=== PATIENT | male | born 1965 | race Asian ===

== ENCOUNTER 2016-11-09 05:12 | Inpatient (IN) | payer OTHER ==
[2016-11-09] VITALS (14 sets, daily range): BP systolic 103–127; BP diastolic 61–84
[~2016-11-09] VITALS: Ht 172.7 cm; Wt 81.6 kg
[2016-11-09] MEDS ORDERED: GABAPENTIN300 MG ORAL (05:59)
[2016-11-09] MEDS ORDERED: Vancomycin 1gm/D5W 275ml IVPB ONE ×2 (06:00)
[2016-11-09] MEDS ORDERED: Pantoprazole Inj IVP ONE (06:00)
[2016-11-09] MEDS ORDERED: CYCLOBENZAPRINE10 MG ORAL (06:00)
[2016-11-09] MEDS ORDERED: Vancomycin 1gm inj IVPB ONE (06:14)
[2016-11-09] MEDS ORDERED: Thrombin 5000 units TOPIC ONE (06:23)
[2016-11-09] MEDS ORDERED: Heparin 5000 units/ml inj ONE (06:24)
[2016-11-09] MEDS ORDERED: Bacitracin 50000 Units Vial ONE (06:25)
[2016-11-09] MEDS ORDERED: Bupivacaine w/Epi 0.5% 30ml Vial INJ ONE (06:25)
[2016-11-09] MEDS ORDERED: Lacri-Lube Opth Oint 3.5gm ONE (06:25)
[2016-11-09] MEDS ORDERED: Thrombin 5000 units spray kit TOPIC ONE ×2 (06:25→09:40)
[2016-11-09] MEDS ORDERED: Gelfoam Absorbable 1gm powder pkt TOPIC ONE ×2 (06:25→09:40)
[2016-11-09] MEDS ORDERED: LR 1000ml 1,000 ML IVLG SCH (06:57)
--- NOTE | 2016-11-09 06:57 | Anethesia Preoperative Eval ---
Anesthesia Pre-op PMH/ROS General Date of Evaluation: Nov 09, 2016 Time of Evaluation: 07:21 Anesthesiologist: Esdras ASA Score: ASA 2 Mallampati Score Class I : Soft palate, uvula, fauces, pillars visible Class II: Soft palate, uvula, fauces visible Class III: Soft palate, base of uvula visible Class IV: Only hard plate visible Mallampati Classification: Class II Surgeon: Chel Diagnosis: Back Pain Surgical Procedure: PSF L4-5, Pedicle Screws Anesthesia History: none Family History: no anesthesia problems Allergies: Coded Allergies: No Known Allergies (Unverified , 11/07/16) Medications: see eMAR Past Medical History Cardiovascular: Reports: HTN PSxH Narrative: Microdiscectomy L4-5 Anesthesia Pre-op Phys. Exam Physician Exam Last Vital Signs Date Time Temp Pulse Resp B/P Pulse Ox O2 Delivery O2 Flow Rate FiO2 11/09/16 06:00 97.8 78 18 127/80 100 Room Air Constitutional: NAD Neurologic: CN 2-12 intact Cardiovascular: RRR Respiratory: CTA Gastrointestinal: S/NT/ND Airway Exam Mallampati Score: Class II MO: limited ROM: limited Teeth: intact Anesthesia Pre-op A/P Risk Assessment & Plan Assessment: ASA 2 Plan: GA, BIS, Glidescope Pre-Antibiotics Dru Gram Vancomycin IV Given Within 1 Hr of Incision: Yes Time Given: 07:41 Jarvis Dewitt MD Nov 09, 2016 06:57
--- NOTE | 2016-11-09 06:59 | Immediate Post-Op Evaluation ---
Immediate Post-Op Evalulation Immediate Post-Op Evalulation Procedure: PSF L4-5, Pedicle Screws Date of Evaluation: Nov 09, 2016 Time of Evaluation: 12:04 IV Fluids: 900 LR Blood Products: 0 Estimated Blood Loss: 75 Urinary Output: 300 Blood Pressure Systolic: 123 Blood Pressure Diastolic: 73 Pulse Rate: 83 Respiratory Rate: 16 O2 Sat by Pulse Oximetry: 100 Temperature (Fahrenheit): 97 Pain Score (1-10): 2 Nausea: No Vomiting: No Complications 0 Patient Status: awake, reacts, patent, extubated, none Hydration Status: adequate Dru Gram Vancomycin IV Given Within 1 Hr of Incision: Yes Time Given: 07:41 Jarvis Dewitt MD Nov 09, 2016 06:59
[2016-11-09] MEDS ORDERED: Hydromorphone 0.5mg/0.5ml inj IVP PRN (07:00)
[2016-11-09] MEDS ORDERED: fentaNYL 100 mcg/2 mL IV PRN (07:00)
[2016-11-09] MEDS ORDERED: DiphenhydrAMINE 50mg/ml Inj IVP PRN ×2 (07:00→12:00)
[2016-11-09] MEDS ORDERED: Norco 7.5mg/325mg tab ORAL PRN (07:00)
[2016-11-09] MEDS ORDERED: LORazepam Inj 2mg/ml 1ml IV PRN (07:00)
[2016-11-09] MEDS ORDERED: Oxycodone/Acetaminophen 5-325 ORAL PRN (07:00)
[2016-11-09] MEDS ORDERED: Norco 5mg/325mg tab ORAL PRN (07:00)
[2016-11-09] MEDS ORDERED: Meperidine 25mg/ml Inj IV PRN (07:00)
[2016-11-09] MEDS ORDERED: Metoclopramide 10mg/2ml Inj IVP PRN (07:00)
[2016-11-09] MEDS ORDERED: Atropine Inj 1mg/10ml Syr IV PRN (07:00)
[2016-11-09] MEDS ORDERED: Labetalol 5mg/ml 20ml vial IV PRN (07:00)
[2016-11-09] MEDS ORDERED: Ketorolac 60mg Inj IV PRN (07:00)
[2016-11-09] MEDS ORDERED: Midazolam 2mg/2ml Inj IVP PRN (07:00)
[2016-11-09] MEDS ORDERED: Ketorolac 30mg Inj IV PRN (07:00)
[2016-11-09] MEDS ORDERED: Acetaminophen (Non formulary) 1,000 MG/100 ML ML IV SCH (07:15)
[2016-11-09] MEDS ORDERED: Zemuron 50mg/5ml Inj IV ONE (07:30)
[2016-11-09] MEDS ORDERED: Neostigmine 1mg/ml 10ml Inj ONE (07:30)
[2016-11-09] MEDS ORDERED: Glycopyrrolate 0.2mg/ml 1ml Vial ONE (07:30)
[2016-11-09] MEDS ORDERED: NS Irrig 1000ml ONE (07:30)
[2016-11-09] MEDS ORDERED: Sterile Water Irrig 1000ml IRRIG ONE (07:30)
[2016-11-09] MEDS ORDERED: Dexamethasone 4mg/ml vial ONE (07:30)
[2016-11-09] MEDS ORDERED: Midazolam 2mg/2ml Inj ONE (07:30)
[2016-11-09] MEDS ORDERED: Lidocaine 1% Plain 30 ml INJ ONE (07:30)
[2016-11-09] MEDS ORDERED: fentaNYL 250mcg/5ml ONE (07:30)
[2016-11-09] MEDS ORDERED: Propofol 10mg/ml 20ml IV ONE (07:30)
[2016-11-09] MEDS ORDERED: LR 1000ml ONE (07:30)
--- NOTE | 2016-11-09 11:59 | Pre-Procedure Note/Attestation ---
Pre-Procedure Note/Attestation Complete Prior to Procedure Planned Procedure: bilateral Procedure Narrative: Posterior lumbar decompressive surgery Right L4-5, Interbody fusion with PEEK cage, pedicle screw fixation L4 and L5 levels bilaterally, arthrodesis using autograft and allograft and iliac crest bone marrow aspiration. Attestation I attest that I discussed the nature of the procedure; its benefits; risks and complications; and alternatives (and the risks and benefits of such alternatives ), prior to the procedure, with the patient (or the patient's legal abrasives sales representative). I attest that, if there was a reasonable possibility of needing a blood transfusion, the patient (or the patient's legal abrasives sales representative) was given the [place] Department of [employer] Services standardized written summary, pursuant to the Gabriel [place]ast[place] Blood Safety Act ([place] Health and Safety Code # 1645, as amended). I attest that I re-evaluated the patient just prior to the surgery and that there has been no change in the patient's H&P, except as documented below: DONTA MORENO Nov 09, 2016 11:59
[2016-11-09] MEDS ORDERED: Naloxone 0.4mg/ml Inj IVP PRN (12:00)
[2016-11-09] MEDS ORDERED: LORazepam 1mg tab ORAL PRN (12:00)
[2016-11-09] MEDS ORDERED: PCA HYDROmorphone 1mg/ml 30 ML IV PRN (12:00)
[2016-11-09] MEDS ORDERED: Rate Change PCA 1 Each MISC PRN (12:00)
--- NOTE | 2016-11-09 12:09 | Brief Operative Note ---
Immediate Post Operative Note Operative Note Chief Complaint: low back pain and right lower extremity radiculopathy Pre-op Diagnosis: Herniated disc and intervertebral body disc height loss L4-5 retrolisthesis of L4 on L5 Lack of improvement from conservative care, medicare therapy and prior lumbar microdiscectomy Procedure: 1. Redo lumbar decompressive hemilaminectomy R l4 2. Facetectomy R inferior L4 facet. 3. Transforaminal approach Right L4-5 from removal of far lateral disc herniation 4. Interbody PEEK cage insertion under fluoroscopy at L4-5, with allograft, autograft bone and iliac crest bone marrow aspirate. 5. Transpedicular fixation L4 and L5 Bilaterally, 40 x 5.0 and 45 x 6.0 screws, Medacta 6. 9 mm spinal element PEEK cage 7. Posterolateral approach, intermuscular and arthrodesis bilaterally L4-5 9. Intra-op supervision, use ad interpretation of Fluoroscopy for localization of spine using instruments. 10. Right iliac crest bone marrow aspiration 11. application of epidural fact graft at L45 12. Intrao-operative monitoring and pedicle screw stimulation L4 and L5 bilaterally 13. Edpidural drain placement 14. Plastic surgical closure of 6 -cm lumbar wound Post-op Diagnosis: same as pre-op Findings: consistent w/pre-op dx studies Surgeon: Trayn Milligan MD Aircraft Engine Mechanic Overhaul: Juanpablo Victoria MD Anesthesiologist: Dr August Anesthesia: general Specimen: yes - Disc Complications: none Condition: stable Fluids: 900 cc crystalloids Estimated Blood Loss: minimal Drains: hemovac Implant(s) used?: Yes - Medacta pedicle screws, [place] allograft and PEEK cage spinal elements TARYN MILLIGAN Nov 09, 2016 12:09
--- NOTE | 2016-11-09 12:29 | General Progress Note ---
Progress Note Progress Note Neurosurgery Postop S/ Comfortable. Incisional pain minimal. O/ Af Vsnl Alert oriented Face symetric Moves all extremities well sensation symmetrical doing well Admit DITTO MACHINE OPERATOR Pt's family updated DONTA MORENO Nov 09, 2016 12:29
--- NOTE | 2016-11-09 14:57 | Diagnostic Imaging Report ---
Indication: Back pain, intraoperative during lumbar fusion, symptoms and back and right lower extremity Technique: Digital intraoperative images Comparison: Findings: Intraoperative images demonstrate surgical tool to what is presumably the L5 vertebral body. Subsequent images document posterior fusion of L4 and L5 with posterior fusion hardware, and placement of a disc spacer. Impression: Intraoperative imaging, as described
[2016-11-09] MEDS: PCA shift volume MISC SCH ×2 (15:10→23:11)
[2016-11-09] MEDS ORDERED: Milk of Magnesia 30ml Ud ORAL PRN (15:30)
[2016-11-09] MEDS ORDERED: Cyclobenzaprine 10mg Tab ORAL PRN (15:30)
[2016-11-09] MEDS: Docusate 100mg cap ORAL SCH (17:47)
[2016-11-09] MEDS: Vancomycin 1 GM in D5W 275 ML IVPB SCH (17:47)
[2016-11-09] MEDS: Pericolace tab ORAL SCH (17:47)
--- NOTE | 2016-11-09 17:48 | Operative Note - Dictated ---
DATE OF OPERATION: 11/09/2016 PREOPERATIVE DIAGNOSES: 1. Recurrent right lower extremity radiculopathy. 2. Status post right L4-5 microdiskectomy, now with intraforaminal far lateral disk herniation. 3. Medically refractory intractable back pain and radiculopathy. 4. Status post injury to the lumbar spine in July 2014. POSTOPERATIVE DIAGNOSES: 1. Recurrent right lower extremity radiculopathy. 2. Status post right L4-5 microdiskectomy, now with intraforaminal far lateral disk herniation. 3. Medically refractory intractable back pain and radiculopathy. 4. Status post injury to the lumbar spine in July 2014. PROCEDURES: 1. Redo right L4 hemilaminectomy, medial facetectomy, and foraminotomy with decompression of the central canal and lateral recess. 2. Complete facet osteotomy of the inferior facet of right L4. 3. Radical diskectomy and preparation of disk space, L4-5 level. 4. Transforaminal approach to the right L4-5 level and resection of a far lateral intraforaminal disk herniation. 5. Preparation of disk space at L4-5 level and complete diskectomy. 6. Insertion of biomechanical device, PEEK cage 9 mm with allograft, autograft, and iliac crest bone marrow aspirate under fluoroscopic guidance insertion. 7. Transpedicular fixation at L4 and L5 levels bilaterally with pedicle screws of 40 x 5 mm and 45 x 6 mm screws, Madacta System. 8. Posterolateral arthrodesis using autologous bone graft, allograft, and iliac crest bone marrow aspiration, L4-5 level bilaterally. 9. Intraoperative supervision use and interpretation of fluoroscopy for localization of spine. 10. Microdissection, internal neurolysis of the right L5 nerve root, and removal of epidural scar. 11. Application of epidural fat graft, L4-5 laminectomy defects. 12. Intraoperative monitoring using somatosensory evoked potential, dermatomal, free-run EMG, and pedicle screw stimulation of L4 and L5 pedicle screws bilaterally. 13. Placement of epidural drain. 14. Plastic surgical closure of a 6 cm lumbar wound. 15. Use of operative microscope for decompression and lumbar instrumentation. SURGEON: Taryn Milligan M.D. SEMICONDUCTOR WAFER INSPECTOR SURGEON: Juanpablo Victoria M.D. ANESTHESIOLOGIST: Jarvis Dewitt M.D. ANESTHESIA TYPE: General endotracheal anesthesia. EBL: Minimal. INTRAVENOUS FLUIDS: 900 mL. SPECIMEN: Disk, L4-5 level. INDICATION: The patient is a pleasant 51-year-old gentleman, status post injury to the lumbar spine and cervical spine in July 2014. He has undergone a wide spectrum of multimodality treatment including medical therapy, interventional injections, and microdiskectomy with persistent medically refractory back pain and radiculopathy. A new MRI of the lumbar spine was obtained, which was significant for intraforaminal far lateral disk herniation at L4-5 level, disk height loss, and retrolisthesis of L4 and L5 vertebral body. Because of persistence of his symptomatology due to less invasive and medical therapy, surgical intervention was recommended. After discussion with the patient regarding all of the risks, benefits, and alternatives of the operation, risks including but not limited to risk of infection, bleeding, nerve damage, paralysis, coma, , spinal fluid leakage, possibility of hardware failure requiring revision surgery, high likelihood of adjacent segment disease requiring additional surgeries in the future, he signed a consent to proceed. DETAILS OF PROCEDURE: The patient was taken to the operating room. He was identified. He underwent an uneventful endotracheal intubation. He received preincisional IV antibiotics of Decadron and magnesium sulfate. Neuromonitoring leads were attached. The patient was placed prone on a Brody table. Care was taken to pad all pressure points. Lumbar lordosis was maintained. Back was then pre-prepped. Fluoroscopic images were obtained to localize the lumbar spine. A time-out was observed and the circulating nurse called the time-out. Back was then prepped and draped in sterile fashion, and microscope was brought to the field. The entire case was done under microscopic magnification. Using a #10 blade, the previous incision was opened and extended cephalad and caudad. Dissection was carried down to the level of the subcutaneous fascia. Subcutaneous fascia was opened. A fat graft from the deep subcutaneous fascia was then removed and placed in antibiotic solution. Then, two paramedian incisions approximately 2 cm off midline were created and intermuscular approach was created down to the L4-5 facet joint complex. Intraoperative fluoroscopic images were obtained to verify the correct level. Neuromonitoring remained stable throughout the case. After the intermuscular approach, Ar[place]o retractors were brought into the field and the muscles were retracted laterally. Transpedicular fixation was commenced at the L4 and L5 levels under fluoroscopic guidance. The 5 x 40 mm and 6 x 45 mm screws were inserted into the L4 and L5 pedicles under fluoroscopic guidance. A right transforaminal approach was then created to the L4-5 foramen. The L4 facet was osteotomized using a high-speed drill. Wide foraminotomy, central decompression, and redo right L4 hemilaminectomy was performed. Ligamentum flavum was removed superficially. The previous laminotomy edge was identified and sharp curetting was used to remove the epidural scar. The L5 root was identified. Internal neurolysis of the L5 nerve root was performed to remove the epidural scar and mobilize the L5 root medially. The medial border of the L5 pedicle was identified. The disk herniation was obvious after removal of the epidural scar. Using a 15 blade, annulotomy was performed. Using sequential size disk corrina, complete diskectomy was carried out. Endplates were rasped and using angled curettes, the cartilage was removed. A 9 mm cage filled with autologous bone graft, bone marrow aspirate concentrate, and [place] allograft was then inserted into the L4-5 interspace under fluoroscopic guidance. Excellent cage position was obtained after maneuvering the cage into the central two-thirds of the intervertebral disk space. A Jamshidi needle was used to aspirate approximately 30 mL of bone marrow from the right iliac crest. The bone marrow aspirate was then given to a tractor technician, who then returned highly concentrated bone marrow aspirate to the field, which was then mixed with Warrick. The posterolateral gutters over the pars and facet at the L4-5 level were decorticated. Bone was placed over decorticated areas. The pedicle screws were then connected using 40 mm interconnecting rods and set screws were inserted. Prior to placement of the rods, transpedicular stimulation showed no evidence of electrical breach. The wound was irrigated with copious amount of antibiotic irrigation. A fat graft was placed over the laminectomy defects at the L4-5 level, which provided excellent coverage of the exposed canal. A Hemovac drain was placed in the epidural space on the right side and brought through a separate stab incision. Incision was closed meticulously in multiple layers using plastic surgical closure. Subcuticular layer was closed using 3-0 Vicryl stitches. Skin was dressed with Dermabond and Steri-Strips. The drain was sutured in place using a 4-0 nylon suture. Instrument count was correct at the end of the case. The patient tolerated the procedure well. He was extubated at the end of the procedure and moving all extremities. COMPLICATIONS: None. Taryn Milligan M.D. DR: FLOYD JOB#: [id number] CC: MEL
[2016-11-10] VITALS: BP 105/66
[2016-11-10 04:00] VITALS: BP 113/74
[2016-11-10] MEDS: Vancomycin 1 GM in D5W 275 ML IVPB SCH (06:23)
[2016-11-10 06:25] LABS: BASOPHILS % (AUTO) 0.4 % (0.0-2.0); EOSINOPHILS % (AUTO) 0.1 % (0.0-3.0); LYMPHOCYTES % (AUTO) 11.6 % (20.0-45.0); MEAN CORPUSCULAR HEMOGLOBIN 29.6 PG (27.0-31.0); MEAN CORPUSCULAR HGB CONC 33.4 G/DL (32.0-36.0); MEAN CORPUSCULAR VOLUME 88 FL (80-99); MEAN PLATELET VOLUME 6.7 FL (6.5-10.1); MONOCYTES % (AUTO) 5.9 % (1.0-10.0); PLATELET COUNT 207 K/UL (150-450); RED BLOOD COUNT 4.53 M/UL (4.70-6.10); RED CELL DISTRIBUTION WIDTH 11.9 % (11.6-14.8); WHITE BLOOD COUNT 12.3 K/UL (4.8-10.8)
[2016-11-10 06:47] LABS: ANION GAP 12 (5-15); CALCIUM 8.4 mg/dL (8.6-10.2); CARBON DIOXIDE 29 mEQ/L (20-30); CHLORIDE 99 mEQ/L (98-107); CREATININE 0.9 mg/dL (0.7-1.2); GLOMERULAR FILTRATION RATE > 60 mL/min (>60); HEMOLYSIS 4; MAGNESIUM 2.2 mg/dL (1.7-2.5); POTASSIUM 4.3 mEQ/L (3.4-4.9); SODIUM 140 mEQ/L (135-145)
[2016-11-10] MEDS: PCA shift volume MISC SCH (07:01)
[2016-11-10 08:00] VITALS: BP 108/69
[2016-11-10] MEDS: Pericolace tab ORAL SCH ×2 (09:09→17:04)
[2016-11-10] MEDS: Docusate 100mg cap ORAL SCH ×2 (09:09→17:04)
--- NOTE | 2016-11-10 11:42 | 48 Hour Post Anesthesia Eval ---
Post Anesthesia Evaluation Procedure: PSF L4-5, Pedicle Screws Date of Evaluation: Nov 10, 2016 Time of Evaluation: 11:40 Blood Pressure Systolic: 108 0: 72 Pulse Rate: 64 Respiratory Rate: 20 Temperature (Fahrenheit): 97.6 O2 Sat by Pulse Oximetry: 98 Airway: patent Nausea: No Vomiting: No Pain Intensity: 3 Hydration Status: adequate Cardiopulmonary Status: stable Mental Status/LOC: patient returned to baseline Follow-up Care/Observations: n/a Post-Anesthesia Complications: none Follow-up care needed: N/A KATJA ELIZONDO M.D. Nov 10, 2016 11:42
[2016-11-10 12:00] VITALS: BP 120/79
[2016-11-10 16:00] VITALS: BP 117/71
[2016-11-10] MEDS ORDERED: Tamsulosin 0.4mg cap ORAL STA (16:19)
--- NOTE | 2016-11-10 18:45 | General Progress Note ---
Progress Note Progress Note Neurosurgery S/ Voided 250 cc. Ambulated in the hallway. R leg pain resolved O/ vs Last 24 Hour Vital Signs Date Time Temp Pulse Resp B/P Pulse Ox O2 Delivery O2 Flow Rate FiO2 11/10/16 16:00 97.5 80 17 117/71 98 Room Air 11/10/16 14:55 97.7 11/10/16 12:00 97.7 70 18 120/79 100 Room Air 11/10/16 11:42 64 20 98 11/10/16 08:00 18 11/10/16 08:00 97.5 66 18 108/69 100 Nasal Cannula 3.0 11/10/16 04:00 18 11/10/16 04:00 97.3 68 18 113/74 100 Nasal Cannula 2.0 11/10/16 00:00 17 11/10/16 00:00 97.7 84 18 105/66 99 Nasal Cannula 2.0 11/09/16 20:18 18 11/09/16 20:00 97.3 83 19 103/63 97 Nasal Cannula 3.0 On exam Alert and oriented x4 Incision completely dry motor 5/5 sensory nl in the lower extremities ambulating unassisted incision completely dry and clean. HV removed without complication. labs Intake and Output 11/09/16 11/10/16 19:00 07:00 Intake Total 1616.6 ml 2240 ml Output Total 375 ml 4020 ml Balance 1241.6 ml -1780 ml Intake Oral 1240 ml IV Total 1616.6 ml 1000 ml Output Urine Total 300 ml 4000 ml Drainage Total 20 ml Estimated Blood Loss 75 ml Laboratory Tests Test 11/10/16 05:40 White Blood Count 12.3 K/UL (4.8-10.8) H Red Blood Count 4.53 M/UL (4.70-6.10) L Hemoglobin 13.4 G/DL (14.2-18.0) L Hematocrit 40.1 % (42.0-52.0) L Mean Corpuscular Volume 88 FL (80-99) Mean Corpuscular Hemoglobin 29.6 PG (27.0-31.0) Mean Corpuscular Hemoglobin Concent 33.4 G/DL (32.0-36.0) Red Cell Distribution Width 11.9 % (11.6-14.8) Platelet Count 207 K/UL (150-450) Mean Platelet Volume 6.7 FL (6.5-10.1) Neutrophils (%) (Auto) 82.0 % (45.0-75.0) H Lymphocytes (%) (Auto) 11.6 % (20.0-45.0) L Monocytes (%) (Auto) 5.9 % (1.0-10.0) Eosinophils (%) (Auto) 0.1 % (0.0-3.0) Basophils (%) (Auto) 0.4 % (0.0-2.0) Sodium Level 140 mEQ/L (135-145) Potassium Level 4.3 mEQ/L (3.4-4.9) Chloride Level 99 mEQ/L (98-107) Carbon Dioxide Level 29 mEQ/L (20-30) Anion Gap 12 (5-15) Blood Urea Nitrogen 9 mg/dL (7-23) Creatinine 0.9 mg/dL (0.7-1.2) Estimat Glomerular Filtration Rate > 60 mL/min (>60) Glucose Level 123 mg/dL (74-106) H Calcium Level 8.4 mg/dL (8.6-10.2) L Magnesium Level 2.2 mg/dL (1.7-2.5) doing well urinary retention ... check post void residual ambulating pain controlled with oral meds HV removed and new dressing applied DONTA MORENO Nov 10, 2016 18:45
[2016-11-10 20:00] VITALS: BP 124/83
[2016-11-11] VITALS: BP 133/84
[2016-11-11 04:00] VITALS: BP 112/75
[2016-11-11 08:23] VITALS: BP 123/73
[2016-11-11] MEDS ORDERED: Tamsulosin 0.4mg cap ORAL SCH (09:00)
[2016-11-11] MEDS: Docusate 100mg cap ORAL SCH (09:20)
[2016-11-11] MEDS: Pericolace tab ORAL SCH (09:20)
[2016-11-11] MEDS ORDERED: Tubing IV Secondary IV ONE (09:39)
--- NOTE | 2016-11-11 11:01 | Geriatric Progress Note ---
Assessment/Plan Assessment/Plan s/p complex spin eusrgeery [post op urinary retension proscar adn flomax and will follow Subjective Interval Events has urinary retention Constitutional: Reports: no symptoms reported Eye: Reports: no symptoms Respiratory: Reports: no symptoms Cardiovascular: Reports: no symptoms Gastrointestinal/Abdominal: Reports: no symptoms Genitourinary: Reports: other - simmons was just removed again Geriatric Geriatric Last 24 Hour Vital Signs Date Time Temp Pulse Resp B/P Pulse Ox O2 Delivery O2 Flow Rate FiO2 11/11/16 08:23 97.0 108 20 123/73 97 Room Air 11/11/16 04:00 98.2 97 18 112/75 100 Room Air 11/11/16 00:00 98.0 85 18 133/84 100 Room Air 11/10/16 20:00 98.1 91 19 124/83 97 Room Air 11/10/16 16:00 97.5 80 17 117/71 98 Room Air 11/10/16 14:55 97.7 11/10/16 12:00 97.7 70 18 120/79 100 Room Air 11/10/16 11:42 64 20 98 Intake and Output 11/10/16 11/11/16 19:00 07:00 Intake Total 1310 ml 1000 ml Output Total 1345 ml 4100 ml Balance -35 ml -3100 ml Intake Oral 360 ml 1000 ml IV Total 950 ml Output Urine Total 1300 ml 4100 ml Drainage Total 45 ml Current Medications Medications (Trade) Dose Ordered Sig/Barbra Route PRN Reason Start Time Stop Time Status Last Admin Dose Admin Acetaminophen (Tylenol) 650 mg Q4H PRN ORAL headache, temp>101,MILD PAIN 11/10/16 19:30 12/10/16 19:29 Acetaminophen/ Hydrocodone Bitart (Davilla 7.5/325) 1 ea Q3H PRN ORAL MILD PAIN unrelieved by APAP 11/11/16 12:00 11/18/16 11:59 Acetaminophen/ Hydrocodone Bitart (Davilla 7.5/325) 2 ea Q3H PRN ORAL Moderate Pain (Pain Scale 4-6) 11/11/16 12:00 11/18/16 11:59 11/11/16 09:24 Cyclobenzaprine HCl (Flexeril) 10 mg TIDPRN PRN ORAL Muscle Spasm 11/09/16 15:30 12/09/16 15:29 Docusate Sodium (Colace) 100 mg TWICE A DAY ORAL 11/09/16 18:00 12/09/16 17:59 11/11/16 09:20 Finasteride (Proscar) 5 mg DAILY ORAL 11/11/16 09:00 12/11/16 08:59 11/11/16 09:20 Gabapentin (Neurontin) 300 mg THREE TIMES A DAY ORAL 11/09/16 18:00 12/09/16 17:59 11/11/16 09:19 Magnesium Hydroxide (Mom) 30 ml QIDPRN PRN ORAL Constipation 11/09/16 15:30 12/09/16 15:29 Ondansetron HCl (Zofran) 4 mg Q6H PRN IVP Nausea & Vomiting 11/09/16 15:15 12/09/16 15:14 Oxycodone/ Acetaminophen (Percocet 10/325) 1 tab Q4HR PRN ORAL Severe Pain (Pain Scale 7-10) 11/10/16 19:00 11/17/16 18:59 11/11/16 00:14 Senna/Docusate Sodium (Ines-Colace) 1 ea TWICE A DAY ORAL 11/09/16 18:00 12/09/16 17:59 11/11/16 09:20 Tamsulosin HCl (Flomax) 0.4 mg DAILY ORAL 11/11/16 09:00 12/11/16 08:59 11/11/16 09:20 Temazepam (Restoril) 15 mg HSPRN PRN ORAL Insomnia 11/09/16 21:00 11/16/16 20:59 Height (Feet): 5 Height (Inches): 8.00 Weight (Pounds): 180 General Appearance: normal inspection ENT: normal ENT inspection Neck: other - no jvd Respiratory: normal breath sounds Cardiovascular: regular rate, rhythm, no JVD Gastrointestinal: soft HANS SRINIVASAN Nov 11, 2016 11:01
[2016-11-11 11:56] VITALS: BP 99/70
[2016-11-11] MEDS ORDERED: Norco 7.5mg/325mg tab ORAL PRN ×2 (12:00)
[2016-11-11] MEDS ORDERED: HYDROmorphone 1mg/ml Carpuject SUBQ PRN (12:00)
[2016-11-11] MEDS ORDERED: NORCO 10-325 T1 EACH ORAL (13:29)
[2016-11-11] MEDS ORDERED: FLOMAX0.4 MG ORAL (13:31)
--- NOTE | 2016-11-12 02:18 | Consultation ---
DATE OF CONSULTATION: 11/11/2016 REFERRING PHYSICIAN: Blu Vasquez M.D. REASON FOR CONSULTATION: Evaluation of urinary retention. HISTORY OF PRESENT ILLNESS: The patient is a 51-year-old male. He has a history of lower extremity radiculopathy secondary to lumbar disk disease. He is two days status post lumbar laminectomy and diskectomy. He has had difficulty voiding and urinary retention requiring the Cabrera catheter. Urology evaluation requested. The patient is able to void at home. He did have some difficulty surgery. PAST MEDICAL HISTORY: Significant for above. MEDICATIONS: His medication list was reviewed. PHYSICAL EXAMINATION: GENERAL: A well-developed and well-nourished male, in in no acute distress. ABDOMEN: Soft. LUNGS: Clear. RECTAL: Reveals a firm prostate of 23 grams. EXTREMITIES: No clubbing or cyanosis. LABORATORY DATA: BUN 9, creatinine 0.9, and white count is 12.3. DIAGNOSTIC IMAGING STUDIES: The patient had a lumbar spine x-ray, which was reviewed. IMPRESSION: 1. Urinary retention. 2. Probable neurogenic bladder. 3. Marked benign prostatic hypertrophy. PLAN AND DISCUSSION: The patient does have urinary retention presumably secondary to combination of BPH related bladder outlet obstruction, most likely, atonic bladder because of lack of mobility and recent surgery as well as pain medication. At this time, his Cabrera catheter has been removed and has been monitored for voiding. He is to continue Flomax and Proscar as ordered and I spoke with the patient and nursing staff and he will be monitored and if he is not able to urinate, the Cabrera catheter is to be inserted with repeat trial in the future and I would recommend to continue with Flomax as an outpatient. He will also need outpatient followup to check PVR and possible cystoscopy. Thank you for the consultation. Jose Zavaleta M.D. DR: CECELIA JOB#: [id number] CC:
[2016-11-13] MEDS ORDERED: PROSCAR5 MG ORAL (13:34)
--- NOTE | 2016-11-13 13:36 | Discharge Summary ---
Discharge Summary Hospital Course Date of Admission Nov 09, 2016 at 05:12 Date of Discharge Nov 11, 2016 at 13:55 Admitting Diagnosis HPI Lonny Perez is a 51 year old male who was admitted on Nov 09, 2016 at 05:12 for Lumbar Radiculopathy,Disc Herniation for elective surgery Consultations dr Vasquez internal medicine dr Milligan - neurosurgeon Procedures 11/09/16 dr Milligan 1. Redo right L4 hemilaminectomy, medial facetectomy, and foraminotomy with decompression of the central canal and lateral recess. 2. Complete facet osteotomy of the inferior facet of right L4. 3. Radical diskectomy and preparation of disk space, L4-5 level. 4. Transforaminal approach to the right L4-5 level and resection of a far lateral intraforaminal disk herniation. 5. Preparation of disk space at L4-5 level and complete diskectomy. 6. Insertion of biomechanical device, PEEK cage 9 mm with allograft, autograft, and iliac crest bone marrow aspirate under fluoroscopic guidance insertion. 7. Transpedicular fixation at L4 and L5 levels bilaterally with pedicle screws of 40 x 5 mm and 45 x 6 mm screws, [place] System. 8. Posterolateral arthrodesis using autologous bone graft, allograft, and iliac crest bone marrow aspiration, L4-5 level bilaterally. 9. Intraoperative supervision use and interpretation of fluoroscopy for localization of spine. 10. Microdissection, internal neurolysis of the right L5 nerve root, and removal of epidural scar. 11. Application of epidural fat graft, L4-5 laminectomy defects. 12. Intraoperative monitoring using somatosensory evoked potential, dermatomal, free-run EMG, and pedicle screw stimulation of L4 and L5 pedicle screws bilaterally. 13. Placement of epidural drain. 14. Plastic surgical closure of a 6 cm lumbar wound. 15. Use of operative microscope for decompression and lumbar instrumentation. Hospital Course patient with medically refractory low back pain and R leg radiculopathy admitted for elective surgery s/p 11/09 -posterior lumbar decompressive surgery ; right L4-5 interbody fusion with PEEK cage, pedicle screw fixation L4 and L5 levels bilaterally, arthrodesis using autograft and allograft and iliac crest, bone marrow aspiration. course of recovery uneventful surgeon closely followed [facility] without difficulties incision clean ambulated unassisted pain controlled neurovascular and motor intact tolerated diet urology consult for urinary retention started on Flomax and Proscar voiding freely fup as outpt with PMD and surgeon DISCHARGE DIAGNOSES medically refractory intractable low back pain lumbar radiculopathy right lower extremity radiculopathy herniated disc and intervertebral body disc height loss L4-5 retrolisthesis of L4 on L5 history of right L4-5 microdiskectomy, now with intraforaminal far lateral disk herniation. history of injury to the lumbar spine in July 2014. urinary retention postoperative bladder outlet obstruction 2 to BPH Discharge Medications New Medications: Finasteride* (Proscar*) 5 Mg Tablet 5 MG ORAL DAILY, #30 TAB 0 Refills Continued Medications: Cyclobenzaprine Hcl* (Flexeril*) 10 Mg Tablet 10 MG ORAL BEDTIME, TAB Gabapentin* (Gabapentin*) 300 Mg Capsule 300 MG ORAL BEDTIME, CAP Hydrocodone Bit/Acetaminophen 10-325* ([place] 10-325*) 1 Each Tablet 1 TAB ORAL Q6H PRN for For Pain, #60 TAB 0 Refills PRN PAIN Tamsulosin HCl (Flomax) 0.4 Mg Cap.er.24h 0.4 MG ORAL DAILY for 30 Days, CAP Discharge Condition Upon Discharge: improving, stable Discharge Disposition Patient was discharged to Home (01) Discharge Diagnoses: Discharge Instructions Discharge Instructions Special Instructions I have been assigned to complete a D/C Summary on this account. I was not involved in the patient management Sole Balderrama NP ([place]) Nov 13, 2016 13:36
== END 2016-11-11 13:55 | disposition home or self-care (01) | DRG 460 ==
LOC: SDSOVERFLO 05:12 → 3E 12:59
PROC: 0ST20ZZ Resection of Lumbar Vertebral Disc, Open Approach (ICD-10-PCS; principal; 2016-11-09 07:00)
PROC: 0QB20ZZ Excision of Right Pelvic Bone, Open Approach (ICD-10-PCS; principal; 2016-11-09 07:00)
PROC: 0SG00A1 (ICD-10-PCS; principal; 2016-11-09 07:00)
DX: M51.16 Intervertebral disc disorders with radiculopathy, lumbar region (principal); N31.9 Neuromuscular dysfunction of bladder, unspecified; N40.1 Benign prostatic hyperplasia with lower urinary tract symptoms; R33.8 Other retention of urine
CPT/HCPCS: 36415; 72020; 76001; 80048; 83735; 85025; 86850; 86900; 86901; 87081; 94003; 94150; C9399; J2250; J2405; J2710